=== PATIENT | male | born 1965 | race Caucasian/White ===

== ENCOUNTER → 2020-05-15 | Outpatient (CLI) | payer OTHER | LOC: SJCVCIMAG 11:57 | PROVIDERS: ATTEND Family Medicine | DX: Z01.810 Encounter for preprocedural cardiovascular examination (principal); R07.9 Chest pain, unspecified; Z86.16 Personal history of COVID-19 ==

== ENCOUNTER → 2020-06-26 | Outpatient (CLI) | payer OTHER ==
[~2020-06-26] MED LIST: CRESTOR20 MG PO
[2020-06-26 09:26] LABS: URINE BILIRUBIN NEGATIVE (Negative); URINE BLOOD NEGATIVE (Negative); URINE CLARITY CLEAR; URINE COLOR YELLOW; URINE GLUCOSE-RANDOM* NEGATIVE (Negative); URINE KETONES NEGATIVE (Negative); URINE LEUKOCYTES-REFLEX TRACE (Negative); URINE NITRITE-REFLEX NEGATIVE (Negative); URINE PROTEIN (DIPSTICK) NEGATIVE (Negative); URINE SPECIFIC GRAVITY 1.015 (1.005-1.035); URINE UROBILINOGEN 0.2 E.U./dl (0.2-1.0)
[2020-06-26 09:28] LABS: HEMATOCRIT 45.9 % (42.0-52.0); MCH 29.8 pg (26.0-34.0); MCHC 34.9 g/dL (28.0-37.0); MCV 85.4 fL (80.0-100.0); RBC 5.37 mil/uL (4.50-6.00); RDW 13.7 % (10.5-14.5); WBC 4.5 thou/uL (4.0-11.0)
[2020-06-26 09:35] LABS: ALBUMIN 4.3 g/dL (3.4-5.0); CREATININE 1.1 mg/dL (0.7-1.3); POTASSIUM 4.2 mmol/L (3.5-5.1)
[2020-06-26 09:43] LABS: INR 0.97; PROTIME 10.6 Seconds (10.5-12.1)
--- NOTE | 2020-06-26 14:33 | EKG ---
[address] [address] ELECTROCARDIOGRAM REPORT Name: DYLAN MOTT ASHA Room #: YEISON Dean#: [id number] Admission: 06/26/20 Attend Phys: Ilda Holman DO Discharge: Date of : 69 Report #: [id number] [facility] Test Date: 2020-06-26 Test Time: 09:26:59 Pat Name: DYLAN MOTT Department: Room: Gender: M Guard Supervisor: JAMEY : 1965 Requested By: Samm Canas Order Number: [id number] MD: Emil Jerome Measurements Intervals Bertrand Rate: 59 P: 41 MS: 146 QRS: 35 QRSD: 117 T: 39 QT: 415 QTc: 412 Interpretive Statements Sinus rhythm Nonspecific intraventricular conduction delay No previous ECG available for comparison Electronically Signed On 06-26-2020 14:33:32 CDT by Emil Jerome [email or web address] <ELECTRONICALLY SIGNED> By: Emil Jerome MD, [facility] 06/26/20 1433 0926 09 Emil Jerome MD, FACC /EPI
== END ==
LOC: PAC 08:44
PROVIDERS: Orthopaedic Surgery; ATTEND Student in an Organized Health Care Education/Training Program
DX: Z01.818 Encounter for other preprocedural examination (principal); Z20.822 Contact with and (suspected) exposure to COVID-19

== ENCOUNTER 2020-06-30 07:40 | Inpatient (IN) | payer OTHER ==
[~2020-06-30] VITALS: Ht 182.9 cm; Wt 106.6 kg
[2020-06-30 09:02] VITALS: BP 134/93
[2020-06-30 16:34] VITALS: BP 139/93
[2020-06-30 19:32] VITALS: BP 146/92
--- NOTE | 2020-06-30 19:46 | NUR ---
ASSUMED PT CARE AT 1400 FROM PACU. PT IS ALERT & ORIENTED X4. PT HAS IV SITE ON R HAND. PT STATED ALLERGIC TO CHICKEN AND TURKEY. PT HAD R TOTAL HIP REPLACEMENT TODAY. PT HAS HEMOVAC AND LM DRESSING ON R HIP. PT HAS SAMANTHA HOSES AND SCD ON. PT C/O OF PAIN AND GIVEN PAIN MEDICATION PER REQUEST. PT FAMILY THE BEDISE. PT ON THE BED, BED ON THE LOWEST POSITION, SIDE RAILS UP, CALL LIGHT WITHIN REACH. WILL CONTINUE TO MONITOR PT. FOLLOW POC.
--- NOTE | 2020-07-01 03:39 | NUR ---
PT C/O PAIN ON ONCOMING GIVEN PRN BY OFF GOING NURSE EFFECTIVE. PT A&oX4. PT C/O N/V X3 ELEVATED TEMP 100.6 NEW ORDER PRN TYLENOL GIVEN TEMP DECREASED TO 98.6 BLADDER SCAN DONE 980CC NOTED [id number] STRAIGHT CATH TOLERATED WELL OUT WAS 1050CC PT CURRENTLY IN BED NO C/O OR DISCOMFORT NOTED.PT REFUSED OPTION OF LEAVING [facility] CATH IN . WILL RESCAN @ 0400 IF NOT VOIDED.DRESSING D/I .WILL CONTINUE TO MONITOR.
[2020-07-01 04:14] VITALS: BP 138/84
[2020-07-01 04:45] LABS: HEMATOCRIT 37.2 % (42.0-52.0); HEMOGLOBIN 12.8 gm/dL (14.0-18.0); MCH 29.5 pg (26.0-34.0); MCHC 34.5 g/dL (28.0-37.0); MCV 85.6 fL (80.0-100.0); RBC 4.35 mil/uL (4.50-6.00); RDW 13.7 % (10.5-14.5); WBC 15.8 thou/uL (4.0-11.0)
--- NOTE | 2020-07-01 04:48 | NUR ---
PT PAIN 10/10 PRN GIVEN . PT UP BEARING WEIGHT FROM BED TO BATHROOM AND BACK VOIDED 650CC , 100CC FROM HEMOVAC, ELEVATED TEMP 99.4 PRN TYLENOL GIVEN.HIP SITE DRESSING D/I AREA WARM TO TOUCH NO REDNESS OR SWELLING NOTED.IV INFUSING W/O DIFFICULTIES. WILL CONTINUE TO MONITOR.
[2020-07-01 07:25] VITALS: BP 125/77
[2020-07-01 08:40] LABS: CALCIUM 8.7 mg/dL (8.5-10.1); MAGNESIUM 1.9 mg/dL (1.8-2.4); POTASSIUM 4.4 mmol/L (3.5-5.1)
--- NOTE | 2020-07-01 09:36 | NUR ---
Received awake on bed. Due medications given as prescribed, able to swallow meds w/o difficulty. On MS, not on telemetry; no complains and signs of chest pain, crushing sensation and heaviness. Assisted in ADLs. On O2 at 2lpm via nasal cannula- post op comfort, not using O2 at home. With nausea this AM, PRN anti emetic given as prescribed. On regular diet- tolerated well post anti emetic. Continent of bowel and bladder, able to go to the toilet with min-mod assist; gait belt, walker and hip precautions. Falls bundle in place. Post op site checked; dressing C/D/I; hemovac in place- output measured and recorded accordingly; ice packs, SCDs and SAMANTHA hose in place- pt able to feel tactile stimulation and intact sensation. Saline locked previous IV fluid at R hand. Offered pt's PO pain meds- pt said he's waiting for his to verify which medication he is allergic with. Pt seen and examined by MOSS PICKER Alma Delia- started on Scopolamine patch, for Urinalysis- a/w speciment; PRN Reglan changed to scheduled dose. To continue monitoring patient. To continue monitoring patient.
--- NOTE | 2020-07-01 12:00 | O ---
[facility] [place] [address] OPERATIVE REPORT Name: DYLAN MOTT Room #: 441-P [facility] M.R.#: [id number] Admission: 06/30/20 Attend Phys: Samm Canas MD Discharge: Date of : 69 Report #: [id number] THIS REPORT FOR: cc: Sissy Hagen Christine L. DO Clymer, David J. MD ~ DOC #: [id number] Samm Canas MD DATE OF SERVICE: 06/30/2020 PREOPERATIVE DIAGNOSIS: Degenerative arthritis, right hip. POSTOPERATIVE DIAGNOSIS: Degenerative arthritis, right hip. PROCEDURE: Right total hip arthroplasty. HISTORY: This 54-year-old gentleman has progressive right hip pain with findings consistent with moderately progressive degenerative arthritis with some Cam impingement. He has tried conservative measures, but is now having much more severe pain and unable to function and work effectively. Given this, he has decided to go ahead with total hip replacement. DESCRIPTION OF PROCEDURE: The patient was taken to the operating room where he was placed under general anesthesia. Prophylactic intravenous antibiotics were administered. He was turned to the left lateral decubitus position and the right hip, thigh and leg were meticulously prepped and draped. A slightly curving posterolateral skin incision was made centered over the greater trochanter. This was carried through fascia and gluteus was split bluntly, exposing the posterior aspect of the hip joint. Short external rotators and capsule were taken down and preserved and tagged with several #2 FiberWire sutures. The hip was dislocated posteriorly. Marked degenerative change on the femoral head and acetabulum was noted. A femoral neck osteotomy was performed. The canal was prepared using the Prabhakar and Nephew hip system. A size 13 femoral stem seemed to fit most appropriately. The trial broach was removed and the calcar trimmed down to an appropriate level. Attention was then directed to the acetabulum. The acetabulum was sequentially reamed, gradually advancing to a 54 mm reamer. This seemed to fit nicely. A permanent Prabhakar and Nephew size 54 StikTite 3 three-hole hemispherical shell was then selected. This was impacted into position, placing this in alignment with his true acetabulum, which placed this at about 45 degrees of vertical and 20 degrees of anteversion. It seated nicely and appeared to be secure. In addition, two cancellous screws were placed through the apical holes, engaging good purchase and periacetabular bone. This added nicely to stability of the cup. A 36 mm polyethylene liner was then selected. This was positioned with a 20-degree elevated rim at about the 10 o'clock posterior position. It was impacted into place. It seated nicely and appeared to be secure. The permanent Prabhakar and Nephew Synergy high offset [address] [address] OPERATIVE REPORT Name: DYLAN MOTT Room #: 441-P [facility] M.R.#: [id number] Admission: 06/30/20 Attend Phys: Samm Canas MD Discharge: Date of : 69 Report #: [id number] femoral stem was selected. This was impacted into position, placing this in about 15 degrees of anteversion. It seated nicely and appeared to be secure. A trial reduction was performed and the hip seemed best suited for a +4 mm neck length. With this trial in position, there was good range of motion, alignment, stability, and appropriate leg length. The trial head was removed and the permanent 36 mm Oxinium head with a +4 mm neck length was selected. This was impacted on the Truong taper. It seated nicely and appeared to be secure. The hip was reduced and once again alignment, range of motion, stability and leg length appeared to be satisfactory. The wound was copiously irrigated. Good hemostasis was established. The short external rotators and capsule were repaired back to bone using the #2 Tevdek sutures passed through drill holes in the greater trochanter. This added nicely the hip stability. A single Hemovac was left in the wound exiting through a separate stab incision. The fascia was then closed with multiple #1 Vicryl sutures. The deeper subcutaneous tissues and more superficial tissues were closed with 0 Monocryl. The skin was closed with skin shaji. A sterile dressing was applied. The patient was awakened and returned to recovery room in good condition. MD MARCK Kraft/ML <ELECTRONICALLY SIGNED> By: Samm Canas MD 07/01/20 1200 1102 1155 Samm Canas MD /nt
--- NOTE | 2020-07-01 13:12 | NUR ---
ASSESSMENT: CM REVIEWED CHART AND MET WITH PATIENT. PT IS ALERT AND ORIENTED X4. PT WAS ADMITTED DUE TO RIGHT TKR. PT REPORTS THAT HE LIVES IN A HOUSE WITH HIS . PT REPORTS HAVING TWO SETPS TO ENTER THE HOME AND NO STEPS HE HAS TO USE ONCE INSIDE. PT REPORTS TAHT HE HAS NO DME AND IS NORMALLY INDEPENDENT WITH ADLS AND AMBULATION. PT HAS NOT HAS HH IN THE PAST OR BEEN TO A SNF. CM DISCUSSED ROLE. PT IS HOPEFUL TO RETURN HOME. THERAPY MET WITH PATIENT AND HE IS NEEDING A FWW PRIOR TO DISCHARGE. PT HAS NO PREFERENCE OF DME COMPANY. [employer] WAS NOTIFIED AND DELIVERED A WALKER TO PATIENTS ROOM. PT IS IN ALOT OF PAIN. PLANS FOR PATIENT TO CONTINUE WITH PAIN CONTROL AND THERAPY. CM WILL CONTINUE TO FOLLOW.
[2020-07-01 14:23] LABS: URINE BILIRUBIN NEGATIVE (Negative); URINE BLOOD NEGATIVE (Negative); URINE CLARITY CLEAR; URINE COLOR YELLOW; URINE GLUCOSE-RANDOM* NEGATIVE (Negative); URINE KETONES NEGATIVE (Negative); URINE LEUKOCYTES-REFLEX NEGATIVE (Negative); URINE NITRITE-REFLEX NEGATIVE (Negative); URINE PROTEIN (DIPSTICK) NEGATIVE (Negative); URINE UROBILINOGEN 0.2 E.U./dl (0.2-1.0)
[2020-07-01 16:20] VITALS: BP 131/76
[2020-07-01 21:36] VITALS: BP 135/84
--- NOTE | 2020-07-02 03:09 | NUR ---
ASSESSED AT START OF SHIFT. PT C/O MUSCLE SPASM AND PAIN. PO METHOCARBAMOL AND OXYCODONE GIVEN AND PT EXPRESSED FEELING A LITTLE BETTER. ON ASSESSMENT RT HAND IV INFILTRATION NOTED WITH SWELLING. OLD IV REMOVED AND ELEVATED ON PILLOW. NEW IV 20G INSERTED ON RT WRIST BY OTHER RN AFTER X2 ATTEMPT. PT UP WITH ASSISTX1 TO THE BATHROOM. TYELNOL GIVEN FOR TEMP 99.4 RECHECKED LATER 98.5. DENIES NAUSEA/ VOMITING. SCOPOLAMINE PATCH ON RIGHT EAR. PT VOIDS APPROPRIATELY. LM DRESSING, SCD'S IN PLACE. FALL PRECAUTION MAINTAINED WILL CONT TO MONITOR TILL EOS.
[2020-07-02 05:21] VITALS: BP 118/78
[2020-07-02 05:24] LABS: HEMATOCRIT 31.5 % (42.0-52.0); HEMOGLOBIN 10.9 gm/dL (14.0-18.0); MCH 29.7 pg (26.0-34.0); MCHC 34.7 g/dL (28.0-37.0); MCV 85.5 fL (80.0-100.0); RBC 3.68 mil/uL (4.50-6.00); RDW 13.4 % (10.5-14.5); WBC 10.7 thou/uL (4.0-11.0)
[2020-07-02 07:42] VITALS: BP 125/74
[2020-07-02 09:29] LABS: CALCIUM 8.1 mg/dL (8.5-10.1); MAGNESIUM 2.1 mg/dL (1.8-2.4); POTASSIUM 3.9 mmol/L (3.5-5.1)
--- NOTE | 2020-07-02 11:24 | NUR ---
Received awake on bed. Due medications given as prescribed, able to swallow meds w/o difficulty. On room air. Vital signs stable. On MS, not on telemetry; no complains and signs of chest pain, crushing sensation and heaviness. Assisted in ADLs. On regular diet- tolerating well; no nausea, no vomiting and no abdominal pain noted. Continent of bowel and bladder, able to go to the toilet with moderate assist, gait belt and walker; hip precautions observed and reminded patient. S/P R DAISHA POD 2; dressing C/D/I; ice packs in place, no bleeding and drainage noted; SCDS and SAMANTHA hose in place. With at bedside; update given. With NS at 100cc/hr infusing well at L wrist- as per Dr Janessa simon to d/c, saline locked. Complained of pain, due PRN pain meds given as prescribed. Seen by PT/OT, participated and tolerated sessions w/o issues; able to walk in the hallway with walker and gait belt. To continue monitoring patient.
--- NOTE | 2020-07-02 13:52 | NUR ---
on-going assessment: CM REVIEWED CHART. PT IS CONTINUING TO WORK WITH THERAPY AND POSSIBLE DISCHARGE FOR TOMORROW PENDING PRGORESS. ORDERS FOR HOME HEALTH, CM DISCUSSED HH WITH PATIENT AND HE IS AGREEABLE. PT HAS NO PREFERENCE OF HH AGENCY. REFERRAL WAS SENT TO [facility]. AWAITING INPUT AT THIS TIME. PT WILL BE STAYING AT THE [address]ESS [address] [place] [address] AT DISCHARGE. CM NOTIFIED [facility].
[2020-07-02 14:43] VITALS: BP 125/74
[2020-07-02 16:14] VITALS: BP 132/86
[2020-07-02 19:45] VITALS: BP 136/74
[2020-07-02 21:15] VITALS: BP 136/74
--- NOTE | 2020-07-03 00:25 | NUR ---
UPON SHIFT ASSESSMENT, PT AOX4. PT REPORTS 8/10 RIGHT HIP PAIN AT REST AND 10/10 TO UNRATEABLE PAIN WITH ACTIVITY/MOVEMENT. PT RECEIVING PRN IV MORPHINE Q1HR, PRN PO NORCO Q4HR WITH PRN PO OXYCODONE Q4HR AVAILABLE. PT NOTED TO HAVE LABORED BREATHING AND SOB WITH EXERTION NOTED. 2L O2 VIA NC APPLIED, PT REPORTS RELIEF, NO DESATURATIONS NOTED. PT TOLERATING PO INTAKE OF FLUIDS AND REGULAR DIET WITHOUT ISSUE. PT WITHOUT NAUSEA OR EMESIS, SCOPALAMINE PATCH REMAINS IN PLACE BEHIND RIGHT EAR. PT AMBULATING TO TOILET WITH X1 ASSIST AND WALKER, PT NOTED TO HAVE TREMORING AFTERWARDS, PT REPORTS TREMORS OCCUR DUE TO INCREASED PAIN AND MUSCLE SPASMS. NO TREMORS NOTED AT REST. ICEP PACKS IN PLACE. PT RESTING IN RECLINER THROUGHOUT SHIFT, NOTED TO SHIFT INDEPENDENTLY. SENSATION INTACT, CAPILLARY REFILL LESS THAN 3SEC, PERIPHERAL PULSES PALPABLE IN ALL EXTREMITIES. PT ENCOURAGED TO NOTIFY STAFF FOR ALL NEEDS, CALL LIGHT WITHIN REACH, BED ALARM ON, BED LOCKED IN LOWEST POSITION, FREQUENT MONITORING WILL CONTINUE.
[2020-07-03 04:08] VITALS: BP 113/70
[2020-07-03 05:25] LABS: HEMATOCRIT 30.5 % (42.0-52.0); HEMOGLOBIN 10.6 gm/dL (14.0-18.0); MCH 29.9 pg (26.0-34.0); MCHC 34.7 g/dL (28.0-37.0); RBC 3.55 mil/uL (4.50-6.00); WBC 8.1 thou/uL (4.0-11.0)
[2020-07-03 07:15] VITALS: BP 118/78
--- NOTE | 2020-07-03 10:24 | NUR ---
ASSUMED PT CARE AROUND 0710. PT ALERT X ORIENTED X 4. ON ROOM AIR.IV LEFT WRIST/SALINE LOCKED. HIP REPLACE. PICCO DRESSING AND ICE PACK IN PLACE. 1 X PERSON ASST TO BATHROOM WITH GAIT BELT AND WALKER. PAIN PARTIALLY CONTROLLED BY PAIN MEDICINE. ON REGULAR DIET.TAKES PILLS WHOLE. IN THE ROOM. LBM ON 06/30/20.WORKED WELL WITH PT X OT. GOOD TO GO HOME FROM PT X OT STAND POINT. FALL PRECAUTION IN PLACE. CALL LIGHT IN REACH. WILL CONTINUE TO MONITOR.
[2020-07-03 11:22] VITALS: BP 125/74
--- NOTE | 2020-07-03 12:49 | NUR ---
ON-GOING ASSESSMENT: KEATON REVIEWED CHART. KEATON SPOKE WITH LIASON FROM [facility] WHO REPORTS THEY CAN ACCEPT PATIENT AND SHE WILL MEET WITH HIM TODAY. LIASON STATED SHE PRINTED OFF DISCHARGE ORDERS AND THEY WILL SCHEDULE PATIENT. PT REPORTS NO FURTHER NEEDS FROM [facility]. WALKER WAS ALREADY DELIVERED TO PATIENTS ROOM. CASE CLOSED.
== END 2020-07-03 12:19 | disposition home health service (06) | DRG 470 ==
LOC: PRE → 4S 07:40 → PRE 07:40 → 4S 14:02 → PRE 14:32 → 4S 07-03 12:19
PROVIDERS: Nurse Practitioner; ADMIT Orthopaedic Surgery; ATTEND Orthopaedic Surgery
PROC: 0SR906Z Replacement of Right Hip Joint with Oxidized Zirconium on Polyethylene Synthetic Substitute, Open Approach (ICD-10-PCS; principal; 2020-06-30)
DX: M16.11 Unilateral primary osteoarthritis, right hip (principal); E78.5 Hyperlipidemia, unspecified; I10 Essential (primary) hypertension; Z88.8 Allergy status to other drugs, medicaments and biological substances
CPT/HCPCS: 10102; 50010; 50382; 50414; 51412; 53000; 53368; 56521; 56525; 56530; 57095; 57103; 62110; 62900; 70005

== ENCOUNTER → 2020-11-05 | Outpatient (CLI) | payer OTHER ==
[2020-11-05 12:33] LABS: HEMATOCRIT 44.5 % (42.0-52.0); MCH 27.4 pg (26.0-34.0); MCHC 33.8 g/dL (28.0-37.0); MCV 81.1 fL (80.0-100.0); RBC 5.48 mil/uL (4.50-6.00); WBC 4.6 thou/uL (4.0-11.0)
[2020-11-05 12:34] LABS: URINE BILIRUBIN NEGATIVE (Negative); URINE BLOOD TRACE (Negative); URINE CLARITY CLEAR; URINE COLOR YELLOW; URINE GLUCOSE-RANDOM* NEGATIVE (Negative); URINE KETONES NEGATIVE (Negative); URINE LEUKOCYTES-REFLEX NEGATIVE (Negative); URINE NITRITE-REFLEX NEGATIVE (Negative); URINE PROTEIN (DIPSTICK) NEGATIVE (Negative); URINE SPECIFIC GRAVITY 1.025 (1.005-1.035); URINE UROBILINOGEN 0.2 E.U./dl (0.2-1.0)
[2020-11-05 12:48] LABS: INR 0.94; PROTIME 10.3 Seconds (10.5-12.1)
[2020-11-05 12:51] LABS: ALBUMIN 3.9 g/dL (3.4-5.0); CALCIUM 8.8 mg/dL (8.5-10.1); POTASSIUM 4.1 mmol/L (3.5-5.1)
== END ==
LOC: PAC 10-28 12:52
PROVIDERS: ATTEND Orthopaedic Surgery
DX: Z01.812 Encounter for preprocedural laboratory examination (principal)

== ENCOUNTER → 2020-11-07 | Outpatient (CLI) | payer OTHER ==
[~2020-11-07] MED LIST changes: +ROSUVASTATIN CA20 MG PO
== END ==
LOC: LAB 08:40
PROVIDERS: ATTEND Student in an Organized Health Care Education/Training Program
DX: Z01.812 Encounter for preprocedural laboratory examination (principal); Z20.822 Contact with and (suspected) exposure to COVID-19

== ENCOUNTER 2020-11-10 06:21 | Observation (INO) | payer OTHER ==
[2020-11-10] VITALS (8 sets, daily range): BP systolic 125–144; BP diastolic 78–98
[~2020-11-10] VITALS: Ht 182.9 cm; Wt 104.3 kg
[~2020-11-10 06:21] MED LIST changes: -ROSUVASTATIN CA20 MG PO
--- NOTE | 2020-11-10 10:22 | O ---
[facility] [place] [address] OPERATIVE REPORT Name: DYLAN MOTT Room #: 150-2 [facility] M.R.#: [id number] Admission: 11/10/20 Attend Phys: Samm Canas MD Discharge: Date of : 69 Report #: [id number] THIS REPORT FOR: cc: Sissy Hagen,Sissy Singh,Samm Rivera MD ~ DATE OF SERVICE: 11/10/2020 PREOPERATIVE DIAGNOSIS: Degenerative arthritis, left hip. POSTOPERATIVE DIAGNOSIS: Degenerative arthritis, left hip. PROCEDURE: Left total hip arthroplasty. SURGEON: Samm Canas MD INDICATIONS: This 54-year-old gentleman has moderately severe bilateral hip arthritis. He has tried conservative measures in the past without benefit. He underwent a right total hip replacement earlier this year with excellent result. He is anxious now to go ahead with left total hip replacement. DESCRIPTION OF PROCEDURE: The patient was taken to the operating room where he was placed under general anesthesia. Prophylactic intravenous antibiotics were administered. He was turned to the right lateral decubitus position. The left hip, thigh and leg were meticulously prepped and draped. A slightly curving posterolateral skin incision was made centered over the greater trochanter. This was carried through subcutaneous tissues and fascia. The gluteus was spread bluntly. The posterior aspect of the hip was visualized. Short external rotators and capsule were taken down and preserved and tagged with several #2 FiberWire sutures. The hip was dislocated posteriorly. Moderately severe chondromalacia damage on the femoral head was noted. There was also some chronic labral tearing. There was fairly deep area of chondral damage on the femoral head, possibly consistent with chondrolysis or subchondral AVN. The femoral neck osteotomy was performed. The canal was prepared using the Prabhakar and Nephew hip system. A size 14 press-fit stem size seemed to fit most appropriately. The calcar was trimmed down at appropriate level. The trial broach was removed and attention was directed to the acetabulum. The acetabulum was reamed sequentially gradually advancing to a 54 mm reamer. The Prabhakar and Nephew Stiktite 3-hole shell was then inserted using the 54 mm shell diameter. This was impacted in alignment with his true acetabulum, which placed this at about 45 degrees off vertical and about 20 degrees of anteversion. It seated nicely and appeared to be secure. In addition, 3 cancellous screws were placed in the apical holes engaging good periacetabular bone and adding nicely to the stability. A 36 mm polyethylene liner was then inserted placing the 20-degree elevated rim at about the 10 o'clock posterior position. This also seated nicely and appeared to be secure. The Prabhakar and Nephew size 14 Synergy porous [address] [address] OPERATIVE REPORT Name: DYLAN MOTT Room #: 150-2 [facility] M.R.#: [id number] Admission: 11/10/20 Attend Phys: Samm Canas MD Discharge: Date of : 69 Report #: [id number] femoral component was then inserted. This was placed in about 15 degrees of anteversion. It seated nicely and appeared to be secure. A trial reduction was performed and a +0 neck length seemed to fit most appropriately. This allowed good hip range of motion and stability with appropriate leg length. The trial head was removed and the permanent Prabhakar and Nephew Oxinium size 36, +0 neck length head was selected. This was impacted on the Truong taper. It seated nicely and appeared to be secure. The hip was then tested and passed through a full arc of motion. Range of motion, alignment, stability, and leg length were assessed and felt to be satisfactory. The wound had moderate oozing throughout the procedure and total blood loss at this point was approximately 300 mL. The capsule and short external rotators were repaired back to bone using the #2 FiberWire sutures passed through drill holes in the greater trochanter. This also added nicely to hip stability. A single Hemovac was left in the wound exiting through a separate stab incision. The fascia was then closed with multiple #1 Vicryl sutures. The subcutaneous tissues were closed with 0 Monocryl. The skin was closed with skin shaji. A sterile dressing was applied. The patient was awakened and returned to the recovery room in good condition. <ELECTRONICALLY SIGNED> By: Samm Canas MD 11/10/20 1022 0838 [id number] Samm Canas MD /nt
[2020-11-10] MEDS ORDERED: ROSUVASTATIN CA20 MG PO (11:57)
--- NOTE | 2020-11-10 14:59 | NUR ---
ASSESSMENT: CM REVIEWED CHART AND SPOKE WITH PATIENT. PT IS S/P L THR. PT REPORTS THAT HE STILL LIVES IN A HOUSE WITH HIS . PT REPORTS ABOUT 2 STEPS TO ENTER THE HOME AND NO STEPS HE HAS TO USE ONCE INSIDE. PT STILL HAS A WALKER AT HOME THAT HE GOT FROM HIS PAST SURGERY. PT REPORTS THAT HE IS NORMALLY OTHERWISE INDEPENDENT WITH ADLS. PT HAD [facility] IN THE PAST AND IF NEEDING HH IS OK WITH USING THEM AGAIN. PER BEDSIDE RN PT REPORTING SOME NAUSEA THIS AFTERNOON. CM WILL CONTINUE TO FOLLOW TO ASSIST NEEDED. PHYSICAL THERAPY EVAL PENDING AT THIS TIME.
--- NOTE | 2020-11-10 16:00 | NUR ---
PT RECEIVED FROM REC ROOM AT 1145 ALERT AND IN NO ACUTE DISTRESS. PT ASSESSED AND MADE COMFORTABLE. LIQUIDS TAKEN W/O NAUSEA. LT HIP DSNG DRY W/ LM. HEMOVAC W/ BLOODY DRAINAGE. NO C/O PAIN THUS FAR. HAS BEEN DOSING OFF AND ON. AT BEDSIDE. THERAPIST ATTEMPTED TO GET PT UP BUT HE BECAME NAUSEATED SO HE DID NOT. FELT BETTER AFTER FEW MINUTES OF LYING BACK DOWN.
--- NOTE | 2020-11-10 18:30 | NUR ---
PT NEEDED TO STAND TO VOID AND BECAME DIZZY AND VOMITED APPROX 500MLS WATERY EMESIS. VOIDED 200MLS AND STATED HE STILL FELT LIKE HE NEEDED TO GO. NAUSEA AND PAIN MEDS GIVEN. AT BEDSIDE.
--- NOTE | 2020-11-11 03:25 | NUR ---
ASSESSED AT START OF SHIFT. PT LAYING IN BED. A&OX4 OXYCODONE GIVEN FOR PAIN. IV INTACTA ND FLUIDS INFUSING. URINAL AT BEDSIDE. NAUSEA MED GIVEN BY PREVIOUS RN, EMESIS NOTED X1. SCOPOLOMINE PATCH ON RT EAR. WILL CONT WITH POC TILL EOS.
[2020-11-11 04:32] VITALS: BP 140/91
[2020-11-11 05:24] LABS: ABSOLUTE NEUTROPHILS 8.8 thou/uL (1.4-8.2); BASOPHILS 0.3 % (0.0-2.0); HEMATOCRIT 38.6 % (42.0-52.0); HEMOGLOBIN 12.9 gm/dL (14.0-18.0); LYMPHOCYTES 11.6 % (24.0-44.0); MCH 27.3 pg (26.0-34.0); MCHC 33.6 g/dL (28.0-37.0); MCV 81.3 fL (80.0-100.0); MONOCYTES 9.9 % (1.0-8.0); PLATELET COUNT 267 thou/uL (150-400); POLYS 78.2 % (36.0-66.0); RBC 4.75 mil/uL (4.50-6.00); RDW 16.3 % (10.5-14.5); WBC 11.2 thou/uL (4.0-11.0)
[2020-11-11 06:21] LABS: CALCIUM 8.6 mg/dL (8.5-10.1); MAGNESIUM 1.8 mg/dL (1.8-2.4); POTASSIUM 3.9 mmol/L (3.5-5.1)
[2020-11-11 07:28] VITALS: BP 131/81
--- NOTE | 2020-11-11 10:20 | NUR ---
A/O X 4. ROOM AIR. ONE ASSIST WITH TRANSFERS. RIGHT HAND IV-DRESSING DRY, CLEAN, AND INTACT WITH D5 0.45 NS INFUSING @ 100 MLS/HR. USES URINAL IN BED. ALLERGIC TO ALL POULTRY. LM DRESSING INTACT, DRY, CLEAN, NO DRAINAGE NOTED LEFT HIP. HAS BEEN USING ICE PACK-STATES IT HELPS WITH PAIN. HAS BEEN NAUSEOUS, ZOFRAN GIVEN AND HAS HELPED. SCOPE PATCH BEHIND RIGHT EAR. PT WORKED WITH HIM AND HE IS SITTING UP IN THE CHAIR.
--- NOTE | 2020-11-11 15:17 | NUR ---
ON-GOING ASSESSMENT: CM REVIEWED CHART. PT IS DOING WELL BUT HAS SOME NAUSEA TODAY. PT WILL CONTINUE TO WORK WITH THERAPIES AND HOPEFUL DISCHARGE HOME TOMORROW WITH NO NEEDS FROM CM. PT HAS EQUIPMENT AT HOME AND OUTPATIENT THERAPY ALREADY ARRANGED. CM WILL CONTINUE TO FOLLOW.
[2020-11-11 20:21] VITALS: BP 142/92
[2020-11-11 20:24] VITALS: BP 142/92
--- NOTE | 2020-11-12 03:41 | NUR ---
ASSESSED AT START OF SHIFT. PT A&OX4 UP WITH ASSISTX1 TO THE BATHROOM. PT WALKED THE HALLWAYS DENIES NAUSEA AND VOMITING. STILL NPO WITH SIPS OF WATER FOR MEDS. SCD'S IN PLACE. CALL LIGHT AT REACH OXYCODONE GIVEN FOR PAIN. FALL PREC IN PLACE AND CALL LIGHT AT REACH WILL CONT TO MONITOR.
[2020-11-12 08:00] VITALS: BP 151/84
[2020-11-12 12:37] VITALS: BP 151/84
[2020-11-12] MEDS ORDERED: ZOFRAN ODT4 MG DISSOLVE (13:25)
[2020-11-12] MEDS ORDERED: PROTONIX 20 MG20 M1 PO (13:25)
[2020-11-12] MEDS ORDERED: COMPAZINE10 MG PO (13:25)
--- NOTE | 2020-11-12 13:45 | NUR ---
PT PROGRESSING WELL. AMBULATING IN HALLS W/ NAUSEA. EATING AND DRINKING. VOIDING WELL. DISCHARGING TO HOME W/ HOME HEALTH FOR THERAPY. WILL F/U W/ DR. BARON FOR DSNG CHANGE.
[2020-11-12 13:50] VITALS: BP 151/84
--- NOTE | 2020-11-13 12:01 | D ---
[facility] [place] [address] DISCHARGE SUMMARY Name: DYLAN MOTT Room #: 447-P [facility] Deyanira Dean#: [id number] Admission: 11/10/20 Attend Phys: Samm Canas MD Discharge: 11/12/20 Date of : 69 Report #: [id number] THIS REPORT FOR: cc: Sissy Hagen Christine L. DO Clymer, David J. MD ~ DATE OF SERVICE: 11/12/2020 FINAL DIAGNOSES: 1. End-stage degenerative arthritis, left hip. 2. Intractable nausea and vomiting, status post anesthesia and pain medications. HISTORY: This 54-year-old gentleman has severe progressive early degenerative arthritis involving both hips. He underwent right total hip replacement a number of months ago with excellent result. He returns now for left total hip replacement. He does have difficulty with pain management and also marked difficulty with nausea and intractable vomiting with any anesthetics or pain medications. HOSPITAL COURSE: The patient was admitted and taken to the operating room on 11/10. He underwent left total hip replacement, which he tolerated generally well. Postoperatively, the x-rays looked good and he is hemodynamically stable. The wound appears to be stable and the dressing is dry. Hemovac output was moderate and his hemoglobin has remained stable. He has once again had marked difficulties with nausea and vomiting. He has been placed on multiple medications and we have tried to adjust his pain medications as he also has significant intractable pain involving the hip. Despite these problems, he has advanced and has been able to tolerate physical therapy. Today, he seems safe and independent with ambulation using a walker for balance. The dressing is clean and dry. He is still somewhat nauseated, but he is able to eat and drink and has not vomited this morning. He seems to be safe and functional and independent and is doing reasonably well on oral diet and medications at this point. Given this, we have elected to go ahead with hospital discharge today. DISCHARGE MEDICATIONS: Include Xarelto 10 mg daily, hydrocodone 10/325 q. 4-6 hours for mild pain, oxycodone 10/325 q. 4-6 hours for more severe pain, rosuvastatin 20 mg daily. He will continue with moderate activity, gradually advancing as comfort and strength allow. I have asked him to call me should there be any problems or [address] [place] [address] DISCHARGE SUMMARY Name: DYLAN MOTT Room #: 447-P [facility] Deyanira Dean#: [id number] Admission: 11/10/20 Attend Phys: Samm Canas MD Discharge: 11/12/20 Date of : 69 Report #: [id number] questions. I will plan to see him back in my office in 1 week for followup and in 2 weeks for suture removal. <ELECTRONICALLY SIGNED> By: Samm Canas MD 11/13/20 1201 0719 08 Samm Canas MD /jovana
== END 2020-11-12 16:24 | disposition home or self-care (01) ==
LOC: OR → TBA 06:23 → OR 09:55 → 4S 11:47 → OR 12:55 → 4S 11-12 16:24
PROVIDERS: Nurse Practitioner; ADMIT Orthopaedic Surgery; ATTEND Orthopaedic Surgery
DX: M16.12 Unilateral primary osteoarthritis, left hip (principal); R11.2 Nausea with vomiting, unspecified; E78.5 Hyperlipidemia, unspecified; Z90.49 Acquired absence of other specified parts of digestive tract; Z98.890 Other specified postprocedural states
CPT/HCPCS: 50010; 50101; 50382; 50414; 51412; 53000; 53368; 56521; 56525; 56530; 57095; 57103; 62110; 62900; 70005